=== PATIENT | male | born 1950 | race Hispanic/Latino ===

== ENCOUNTER → 2018-02-22 | Outpatient (CLI) | payer MEDICARE | END | disposition home or self-care (01) | LOC: SHCH 08:53 | PROVIDERS: ATTEND Internal Medicine Cardiovascular Disease | DX: I50.22 Chronic systolic (congestive) heart failure (principal) | CPT/HCPCS: 93306 ==

== ENCOUNTER 2018-04-12 06:00 | Observation (INO) | payer MEDICARE ==
[2018-04-10 10:51] VITALS: BP 100/61
[2018-04-10 10:52] LABS: BASOPHILS % (AUTO) 0.9 % (0.0-5.0); EOSINOPHILS % (AUTO) 2.7 % (0.0-8.0); HEMATOCRIT 43.3 % (42-54); LYMPHOCYTES % (AUTO) 25.9 % (21.0-51.0); MEAN CORPUSCULAR HEMOGLOBIN 28.9 pg (27.0-33.0); MEAN CORPUSCULAR HGB CONC 32.5 g/dL (32.0-36.0); MEAN CORPUSCULAR VOLUME 88.8 fL (79-99); MONOCYTES % (AUTO) 7.1 % (3.0-13.0); NEUTROPHILS % (AUTO) 63.4 % (40.0-77.0); PLATELET COUNT (AUTO) 143 K/uL (130-400); RED BLOOD CELL COUNT(AUTO) 4.88 MIL/uL (4.50-6.20); RED CELL DISTRIBUTION WIDTH 14.6 % (11.0-15.5); WHITE BLOOD COUNT (AUTO) 6.1 K/uL (4.8-10.8)
[2018-04-10 10:58] LABS: CREATININE 0.9 mg/dL (0.5-1.5); POTASSIUM 4.1 mmol/L (3.5-5.1)
[2018-04-10 11:48] LABS: INR 1.08 (0.85-1.15); PARTIAL THROMBOPLASTIN TIME 31.3 SEC (26.3-35.5); PROTHROMBIN TIME 11.3 SEC (9.6-11.6)
[2018-04-12] VITALS (13 sets, daily range): BP systolic 79–119; BP diastolic 55–81
[~2018-04-12] VITALS: Ht 168.9 cm; Wt 73.8 kg
[~2018-04-12 06:00] MED LIST: ASPI-555 PO; ATOR40TA71 PO; BUSP5TAB3 PO; CARV3.12 PO; CEFAZOLIN SODIUM 1 GM VIAL IVP SCH; CLOP75TA14 PO; FURO40TA5 PO; KETO.5OS OU; METF-444 PO; SACU1TAB PO
[2018-04-12] MEDS: SODIUM CHLORIDE 0.9% 1000ML 1,000 ML IV SCH (07:03)
[2018-04-12] MEDS ORDERED: BUPIVACAINE/PF 0.25% 30ML VIAL IJ ONE (07:42)
[2018-04-12] MEDS ORDERED: CEFAZOLIN SODIUM 1 GM VIAL ONE (07:42)
[2018-04-12] MEDS ORDERED: MEPERIDINE-PF 25 MG/ML SYG ONE (07:42)
[2018-04-12] MEDS ORDERED: LIDOCAINE HCL 1% MDV 50ML VIAL ONE (07:43)
[2018-04-12] MEDS ORDERED: MIDAZOLAM HCL 1 MG/ML 2ML VIAL ONE (07:43)
[2018-04-12] MEDS: CLOPIDOGREL BISULFATE 75 MG TAB PO SCH (09:00)
[2018-04-12] MEDS: CARVEDILOL 3.125 MG TABLET PO SCH ×2 (09:00→20:22)
[2018-04-12] MEDS ORDERED: ONDANSETRON HCL 4 MG/2 ML VIAL IV PRN (09:00)
[2018-04-12] MEDS ORDERED: TEMAZEPAM 30 MG CAP PO PRN (09:00)
[2018-04-12] MEDS: BUSPIRONE HCL 5 MG TABLET PO SCH ×2 (09:00→20:21)
[2018-04-12] MEDS: VALSARTAN PO SCH ×2 (09:00→20:23)
[2018-04-12] MEDS ORDERED: ACETAMINOPHEN-CODEINE 300/30MG TAB PO PRN ×2 (09:00)
[2018-04-12] MEDS: SACUBITRIL PO SCH ×2 (09:00→20:23)
[2018-04-12] MEDS: FUROSEMIDE 40 MG TABLET PO SCH (09:00)
--- NOTE | 2018-04-12 09:15 | NUR ---
REPORT RECEIVED OVER THE PHONE FROM SHOAIB ABERNATHY
--- NOTE | 2018-04-12 09:19 | NUR ---
DR. EPPERSON SPOKE TO FAMILY, LA FLORES SPOKE TO FAMILY.
--- NOTE | 2018-04-12 09:30 | NUR ---
PT RECEIVED, PRESSURE DRESSING IN PLACE, SLING TO LEFT ARM. VISIBLE DRESSING DRY AND INTACT, INSTRUCTIONS ON SLING GIVEN.
--- NOTE | 2018-04-12 14:00 | NUR ---
REPORT TO SHOAIB VELA
--- NOTE | 2018-04-12 14:25 | NUR ---
pt arrived to room 227, post aicd placement. pt is aaox4, no acute distress noted. pt with pressure dressing to left chest wall, left arm in sling. poc discussed with patient and son. oriented to room and environment. tele with sinus 69. will cont to monitor.
[2018-04-12] MEDS: METFORMIN HCL 500 MG TABLET PO SCH (17:03)
[2018-04-12] MEDS: ACETAMINOPHEN 325 MG TAB PO PRN (17:03)
[2018-04-12] MEDS ORDERED: ATORVASTATIN CALCIUM 40 MG TABLET PO SCH (21:00)
--- NOTE | 2018-04-12 21:00 | NUR ---
PT ASSESSMENT- IN BED, SON AT BEDSIDE. POST AICD PLACEMENT. STATES PAIN TO LEFT SIDE OF NECK, HAS SUBSIDED COMPARED TO PAIN EARLIER DURING THE DAY. PRN TYLENOL CODEINE AVAILABLE X1 TAB. WILL ADMINISTER. PRESSURE DRESSING TO LEFT SIDE OF CHEST. INTACT SLING IN PLACE. AWARE OF PRECAUTIONS RELATING TO ACTIVITY. AAOX4. PERRLA. ACTIVE BOWEL SOUNDS. NO SOB.
[2018-04-13 03:58] VITALS: BP 94/56
[2018-04-13 04:02] VITALS: BP 99/67
[2018-04-13] MEDS: SODIUM CHLORIDE 0.9% 1000ML 1,000 ML IV SCH (04:08)
[2018-04-13] MEDS: ACETAMINOPHEN 325 MG TAB PO PRN (06:38)
[2018-04-13 07:52] VITALS: BP 94/46
[2018-04-13] MEDS ORDERED: ASPIRIN 81 MG EC TAB PO SCH (08:00)
[2018-04-13] MEDS: FUROSEMIDE 40 MG TABLET PO SCH (08:04)
[2018-04-13] MEDS: BUSPIRONE HCL 5 MG TABLET PO SCH (08:04)
[2018-04-13] MEDS: CARVEDILOL 3.125 MG TABLET PO SCH (08:05)
[2018-04-13] MEDS: METFORMIN HCL 500 MG TABLET PO SCH (08:05)
[2018-04-13] MEDS: CLOPIDOGREL BISULFATE 75 MG TAB PO SCH (08:06)
[2018-04-13] MEDS: SACUBITRIL PO SCH (08:08)
[2018-04-13] MEDS: VALSARTAN PO SCH (08:08)
--- NOTE | 2018-04-13 10:18 | NUR ---
PT IN NO DISTRESS- PLAN OF CARE AND HOME CARE DISCUSSED WITH PT/SON. I REMOVED PRESSURE DRESSING FROM CHEST AND OPSITE/GAUZE DRESSING REMAINS. NO HEMATOMA NOTED. LEFT ARM IN SLING
[2018-04-13 11:07] VITALS: BP 100/66
[2018-04-13] MEDS ORDERED: CEPH250 PO (14:15)
--- NOTE | 2018-04-13 16:15 | NUR ---
PRESCRIPTIONS CALLED IN TO [facility] IN [place] PRIOR TO DISCHARGE.
--- NOTE | 2018-04-13 16:16 | NUR ---
DR VIEIRA CALLED AND CLARIFIED DISCHARGE RX FOR KEFLEX
--- NOTE | 2018-04-13 16:30 | NUR ---
PT DISCHARGED. HOME WITH FAMILY. PRINTED AND VERBAL DISCHARGE INSTRUCTIONS GIVEN TO PATIENT AND HIS SON. NO ACUTE DISTRESS NOTED. TO CAR VIA WHEELCHAIR. NO HEMATOMA TO LT CHEST INCISION
== END 2018-04-13 17:00 | disposition home or self-care (01) ==
LOC: DAH 06:00 → DAHIP 06:01 → 2DH 14:15
PROVIDERS: ADMIT Internal Medicine; ATTEND Internal Medicine
DX: I50.22 Chronic systolic (congestive) heart failure (principal); E11.9 Type 2 diabetes mellitus without complications; I25.5 Ischemic cardiomyopathy; E78.5 Hyperlipidemia, unspecified; I11.0 Hypertensive heart disease with heart failure; I25.10 Atherosclerotic heart disease of native coronary artery without angina pectoris; I25.2 Old myocardial infarction; Z86.73 Personal history of transient ischemic attack (TIA), and cerebral infarction without residual deficits; Z87.891 Personal history of nicotine dependence; Z79.899 Other long term (current) drug therapy
CPT/HCPCS: 33249; 36415; 71045; 80048; 82948 ×6; 85025; 85610; 85730; C1722; C1895; G0378 ×35; J0690; J2175; J2250; J3490 ×2; J7030; 99156; 99157; A4606

== ENCOUNTER → 2021-10-20 | Outpatient (CLI) | payer OTHER, MEDICARE ==
[~2021-10-20] MED LIST changes: -ASPI-555 PO; +ASPI-556 PO; -CEFAZOLIN SODIUM 1 GM VIAL IVP SCH; +CEPH250 PO
== END | disposition home or self-care (01) ==
LOC: RAH 09:44
PROVIDERS: ATTEND Internal Medicine
DX: I08.0 Rheumatic disorders of both mitral and aortic valves (principal); I50.42 Chronic combined systolic (congestive) and diastolic (congestive) heart failure; I77.819 Aortic ectasia, unspecified site; E11.9 Type 2 diabetes mellitus without complications; E78.5 Hyperlipidemia, unspecified; I11.0 Hypertensive heart disease with heart failure
CPT/HCPCS: 93306

== ENCOUNTER → 2022-05-15 | Outpatient (CLI) | payer OTHER, MEDICARE ==
[~2022-05-15] MED LIST changes: +CLOP-31 PO; -CLOP75TA14 PO
[2022-05-15 12:23] LABS: CREATININE 0.7 mg/dL (0.5-1.5)
== END | disposition home or self-care (01) ==
LOC: LAB 08:59
PROVIDERS: ATTEND Internal Medicine Cardiovascular Disease
DX: I50.22 Chronic systolic (congestive) heart failure (principal); E11.59 Type 2 diabetes mellitus with other circulatory complications
CPT/HCPCS: 36415; 80053; 80061; 83880

== ENCOUNTER → 2022-08-17 | Outpatient (CLI) | payer OTHER, MEDICARE ==
[2022-08-17 12:39] LABS: CREATININE 0.7 mg/dL (0.5-1.5); POTASSIUM 3.8 mmol/L (3.5-5.1)
== END | disposition home or self-care (01) ==
LOC: LAB 09:10
PROVIDERS: ATTEND Internal Medicine Cardiovascular Disease
DX: I11.0 Hypertensive heart disease with heart failure (principal); I50.22 Chronic systolic (congestive) heart failure; E78.5 Hyperlipidemia, unspecified
CPT/HCPCS: 36415; 80048; 83880

== ENCOUNTER → 2023-05-09 | Outpatient (CLI) | payer OTHER, MEDICARE ==
[2023-05-09 12:57] LABS: CREATININE 0.7 mg/dL (0.5-1.5); POTASSIUM 3.6 mmol/L (3.5-5.1)
== END | disposition home or self-care (01) ==
LOC: LAB 09:07
PROVIDERS: ATTEND Internal Medicine Cardiovascular Disease
DX: I50.22 Chronic systolic (congestive) heart failure (principal); I95.2 Hypotension due to drugs
CPT/HCPCS: 36415; 80048; 83735; 83880

== ENCOUNTER → 2023-08-07 | Outpatient (CLI) | payer OTHER, MEDICARE ==
[2023-08-07 12:09] LABS: BASOPHILS # (AUTO) 0.04 K/uL (0.00-0.20); BASOPHILS % (AUTO) 0.5 % (0.0-5.0); EOSINOPHILS # (AUTO) 0.13 K/uL (0.00-0.70); EOSINOPHILS % (AUTO) 1.7 % (0.0-8.0); HEMATOCRIT 43.5 % (42-54); IMMATURE GRANULOCYTE ABSOLUTE 0.04 K/uL (0-1); LYMPHOCYTES # (AUTO) 1.5 K/uL (1.0-4.8); LYMPHOCYTES % (AUTO) 19.8 % (21.0-51.0); MEAN CORPUSCULAR HEMOGLOBIN 30.7 pg (27.0-33.0); MEAN CORPUSCULAR HGB CONC 32.9 g/dL (32.0-36.0); MEAN CORPUSCULAR VOLUME 93.3 fL (79-99); MONOCYTES # (AUTO) 0.4 K/uL (0.1-1.0); MONOCYTES % (AUTO) 5.6 % (3.0-13.0); NEUTROPHILS # (AUTO) 5.4 K/uL (1.8-7.7); NEUTROPHILS % (AUTO) 71.9 % (40.0-77.0); PLATELET COUNT (AUTO) 182 K/uL (130-400); RED BLOOD CELL COUNT(AUTO) 4.66 MIL/uL (4.50-6.20); RED CELL DISTRIBUTION WIDTH 13.9 % (11.0-15.5); WHITE BLOOD COUNT (AUTO) 7.5 K/uL (4.8-10.8)
[2023-08-07 12:25] LABS: BILIRUBIN,TOTAL 1.7 mg/dL (0.2-1.0); CREATININE 0.7 mg/dL (0.5-1.3); POTASSIUM 3.9 mmol/L (3.5-5.1); TOTAL PROTEIN, SERUM 6.8 g/dL (6.0-8.3)
== END | disposition home or self-care (01) ==
LOC: LAB 10:13
PROVIDERS: ATTEND Internal Medicine Cardiovascular Disease
DX: I50.22 Chronic systolic (congestive) heart failure (principal)
CPT/HCPCS: 36415; 80053; 80061; 83880; 85025

== ENCOUNTER → 2024-06-10 | Outpatient (CLI) | payer OTHER, MEDICARE ==
[2024-06-10 12:13] LABS: BASOPHILS # (AUTO) 0.05 K/uL (0.00-0.20); BASOPHILS % (AUTO) 0.6 % (0.0-5.0); EOSINOPHILS # (AUTO) 0.16 K/uL (0.00-0.70); EOSINOPHILS % (AUTO) 1.8 % (0.0-8.0); HEMATOCRIT 47.1 % (42-54); IMMATURE GRANULOCYTE ABSOLUTE 0.02 K/uL (0-1); LYMPHOCYTES # (AUTO) 1.7 K/uL (1.0-4.8); LYMPHOCYTES % (AUTO) 18.7 % (21.0-51.0); MEAN CORPUSCULAR HGB CONC 31.4 g/dL (32.0-36.0); MEAN CORPUSCULAR VOLUME 95.5 fL (79-99); MONOCYTES # (AUTO) 0.5 K/uL (0.1-1.0); MONOCYTES % (AUTO) 5.9 % (3.0-13.0); NEUTROPHILS # (AUTO) 6.6 K/uL (1.8-7.7); NEUTROPHILS % (AUTO) 72.8 % (40.0-77.0); PLATELET COUNT (AUTO) 177 K/uL (130-400); RED BLOOD CELL COUNT(AUTO) 4.93 MIL/uL (4.50-6.20); RED CELL DISTRIBUTION WIDTH 14.2 % (11.0-15.5); WHITE BLOOD COUNT (AUTO) 9.1 K/uL (4.8-10.8)
[2024-06-10 12:24] LABS: BILIRUBIN,TOTAL 2.1 mg/dL (0.2-1.0); CREATININE 0.7 mg/dL (0.5-1.3); MAGNESIUM 2.1 mg/dL (1.80-2.40); POTASSIUM 4.1 mmol/L (3.5-5.1); TOTAL PROTEIN, SERUM 6.8 g/dL (6.0-8.3)
== END | disposition home or self-care (01) ==
LOC: LAB 09:24
PROVIDERS: ATTEND Internal Medicine Cardiovascular Disease
DX: I25.2 Old myocardial infarction (principal); I50.22 Chronic systolic (congestive) heart failure
CPT/HCPCS: 36415; 80053; 80061; 83735; 83880; 85025